=== PATIENT | male | born 1970 | race Caucasian/White ===

== ENCOUNTER 2016-08-29 22:50 | Observation (INO) | payer BC ==
[~2016-08-29] VITALS: Ht 182.9 cm; Wt 83.1 kg
--- NOTE | 2016-08-29 23:09 | PD ---
HPI Chief Complaint: altered mental status Time Seen by Provider: 23:02 Travel History International Travel<30 days: No Contact w/Intl Traveler<30days: No Traveled to known affect area: No History of Present Illness HPI 46-year-old male brought in by ambulance for evaluation of altered mental status. The patient has history of diabetes and takes 2 mg of Lantus daily. He admits to drinking alcohol daily, but states he drank only a half a bottle of wine today. According to EMS, family and friends were worried about the patient's altered mental status and more particular concerned that he might have low blood sugar. BGL obtained by EMS was 112. Patient arrives agitated, however I'm able to easily calmed down by talking to him. He tells me he thinks his blood sugar may be low and that he has not been acting like himself for the last 5 hours. He states he is from [place] and feels somewhat depressed because he has to go back to their and leave his girlfriend here. He is here currently on vacation. States that he was supposed to fly back to days ago, but has missed his flights the last 2 days. He denies illicit drug use. Complains of total body aches, but is denying any other physical complaints. No suicidal or homicidal ideation. When talking with the patient's girlfriend, she tells me that the patient has had several similar episodes of not acting like himself, becoming agitated over the last 4 days. PFSH Social History Alcohol Use: Yes Tobacco Use: No (former smoker) Allergies-Medications (Allergen,Severity, Reaction): Coded Allergies: Darvocet-N 100 (Verified Allergy, Severe, Hallucinations, 08/29/16) Reported Meds & Prescriptions Reported Meds & Active Scripts Active Reported Prevacid (Lansoprazole) 15 Mg Capdr 15 Mg PO DAILY Lantus Inj (Insulin Glargine) 1,000 Unit/10 Ml Vial 2 Units SQ DAILY Review of Systems Except as stated in HPI: all other systems reviewed are Neg Physical Exam Narrative GENERAL: Well-developed, well-nourished, awake, alert, no acute distress. SKIN: Warm and dry. HEAD: Atraumatic. Normocephalic. EYES: Pupils equal and round. No scleral icterus. No injection or drainage. ENT: Mucous membranes pink and moist. NECK: Trachea midline. No JVD. CARDIOVASCULAR: Regular rate and rhythm. RESPIRATORY: No accessory muscle use. Clear to auscultation. Breath sounds equal bilaterally. GASTROINTESTINAL: Abdomen soft, non-tender, nondistended. MUSCULOSKELETAL: No obvious deformities. No clubbing. No cyanosis. No edema. NEUROLOGICAL: Awake and alert. No obvious cranial nerve deficits. Motor grossly within normal limits. Normal speech. PSYCHIATRIC: Agitated, but easily consolable. Flat affect. Appears intoxicated. Data Data Last Documented VS Vital Signs Date Time Temp Pulse Resp B/P Pulse Ox O2 Delivery O2 Flow Rate FiO2 08/30/16 00:40 100 18 163/95 95 Room Air 08/29/16 23:10 97.9 Orders Complete Blood Count With Diff (08/29/16 23:02) Comprehensive Metabolic Panel (08/29/16 23:02) Electrocardiogram (08/29/16 23:02) Drug Screen, Random Urine (08/29/16 23:02) Alcohol (Ethanol) (08/29/16 23:02) Salicylates (Aspirin) (08/29/16 23:02) Tylenol (Acetaminophen) (08/29/16 23:02) Ammonia (08/29/16 23:02) Ct Brain W/O Iv Contrast(Rout) (08/29/16 ) Sodium Chlor 0.9% 1000 Ml Inj (Ns 1000 M (08/29/16 23:45) Ckmb (Isoenzyme) Profile (08/29/16 23:10) Troponin I (08/29/16 23:10) CKMB (08/29/16 23:10) CKMB% (08/29/16 23:10) Sodium Chlor 0.9% 1000 Ml Inj (Ns 1000 M (08/30/16 01:30) Place In Observation (08/30/16 ) Vital Signs (Adult) Q4H (08/30/16 01:42) Activity Oob With Assistance (08/30/16 01:42) Lathe Spotter / Telemetry .CONTINUOUS (08/30/16 01:42) Sodium Chlor 0.9% 1000 Ml Inj (Ns 1000 M (08/30/16 01:42) Sodium Chloride 0.9% Flush (Ns Flush) (08/30/16 01:45) Sodium Chloride 0.9% Flush (Ns Flush) (08/30/16 09:00) Case Management Consult (08/30/16 01:42) Enoxaparin Inj (Lovenox Inj) (08/30/16 09:00) Naloxone Inj (Narcan Inj) (08/30/16 01:45) Creatine Kinase (Cpk) (08/30/16 06:00) Magnesium (Mg) (08/29/16 23:10) Admit Order (Ed Use Only) (08/30/16 ) ^ Saline Lock (08/30/16 01:44) Resp Oxygen Sumit C Titrat 1-4 L (08/30/16 ) ^ Notify Dr: Other (08/30/16 01:44) Sodium Chloride 0.9% Flush (Ns Flush) (08/30/16 09:00) Sodium Chloride 0.9% Flush (Ns Flush) (08/30/16 01:45) Urinalysis - C+S If Indicated (08/30/16 01:46) CKMB (08/30/16 07:28) CKMB% (08/30/16 07:28) Labs Laboratory Tests Test 08/29/16 08/30/16 23:10 00:00 White Blood Count 4.9 TH/MM3 Red Blood Count 4.98 MIL/MM3 Hemoglobin 14.4 GM/DL Hematocrit 42.1 % Mean Corpuscular Volume 84.7 FL Mean Corpuscular Hemoglobin 29.0 PG Mean Corpuscular Hemoglobin 34.2 % Concent Red Cell Distribution Width 15.3 % Platelet Count 193 TH/MM3 Mean Platelet Volume 7.9 FL Neutrophils (%) (Auto) 41.6 % Lymphocytes (%) (Auto) 32.6 % Monocytes (%) (Auto) 19.1 % Eosinophils (%) (Auto) 5.4 % Basophils (%) (Auto) 1.3 % Neutrophils # (Auto) 2.0 TH/MM3 Lymphocytes # (Auto) 1.6 TH/MM3 Monocytes # (Auto) 0.9 TH/MM3 Eosinophils # (Auto) 0.3 TH/MM3 Basophils # (Auto) 0.1 TH/MM3 CBC Comment DIFF FINAL Differential Comment Sodium Level 139 MEQ/L Potassium Level 3.7 MEQ/L Chloride Level 99 MEQ/L Carbon Dioxide Level 27.3 MEQ/L Anion Gap 13 MEQ/L Blood Urea Nitrogen 8 MG/DL Creatinine 0.80 MG/DL Estimat Glomerular Filtration 105 ML/MIN Rate Random Glucose 103 MG/DL Calcium Level 8.5 MG/DL Magnesium Level 2.2 MG/DL Total Bilirubin 0.4 MG/DL Aspartate Amino Transf 138 U/L (AST/SGOT) Alanine Aminotransferase 164 U/L (ALT/SGPT) Alkaline Phosphatase 63 U/L Ammonia 11 MCMOL/L Total Creatine Kinase 1233 U/L Creatine Kinase MB 8.6 NG/ML Creatine Kinase MB % 0.7 % Troponin I 0.07 NG/ML Total Protein 7.4 GM/DL Albumin 3.8 GM/DL Salicylates Level LESS THAN 1.7 MG/DL Acetaminophen Level LESS THAN 2.0 MCG/ML Ethyl Alcohol Level 421 MG/DL Urine Color STRAW Urine Turbidity CLEAR Urine pH 6.0 Urine Specific [place] 1.001 Urine Protein NEG mg/dL Urine Glucose (UA) NEG mg/dL Urine Ketones NEG mg/dL Urine Occult Blood TRACE Urine Nitrite NEG Urine Bilirubin NEG Urine Leukocyte Esterase NEG Urine RBC 0-3 /hpf Urine Squamous Epithelial 0-5 /hpf Cells Microscopic Urinalysis Comment CULT NOT INDICATED Urine Opiates Screen NEG Urine Barbiturates Screen NEG Urine Amphetamines Screen NEG Urine Benzodiazepines Screen NEG Urine Cocaine Screen NEG Urine Cannabinoids Screen NEG MDM Medical Decision Making Medical Screen Exam Complete: Yes Emergency Medical Condition: Yes Interpretation(s) EKG: Sinus, rate 95, left axis deviation, normal intervals, Q waves in inferior leads, no acute ischemic abnormalities. Differential Diagnosis Alcohol intoxication, depression, intracranial abnormality, hyperammonemia, liver failure, metabolic abnormality Narrative Course Initial vital signs show heart rate 110, blood pressure 163/98, pulse ox 96% on room air, oral temp of 97.9F. CBC is unremarkable. CMP is remarkable for AST 138, ALT 164, otherwise unremarkable. At approximately midnight at the end of my shift the patient was signed out to Dr. Hirsch who will follow up with the rest of the patient's labs and will disposition the patient. The patient was made aware of all findings until this point. Reports history of elevated liver enzymes and is likely secondary to his alcohol use. He admits to drinking more alcohol than he usually does over the last several days while he has been here on vacation and this is likely contributing to the way he has been acting. Again he denies suicidal or homicidal ideation. He does admit to feeling somewhat anxious and depressed about going back to [place] and leaving his girlfriend behind. I offered to have a psychiatrist be to the patient, however he has declined. If the rest of his lab work is unremarkable, the girlfriend feels comfortable taking the patient home. Patient reports that he has a flight back to [place] tomorrow. David Esquivel MD Aug 29, 2016 23:09
[2016-08-29 23:10] VITALS: BP 163/98; PULSE 110; RESP 18; TEMP 97.9; O2SAT 96
[2016-08-29 23:37] LABS: CHLORIDE 99 MEQ/L (98-107); POTASSIUM 3.7 MEQ/L (3.5-5.1); SODIUM (NA) 139 MEQ/L (136-145)
[2016-08-29 23:40] LABS: ANION GAP 13 MEQ/L (5-15); BICARBONATE 27.3 MEQ/L (21.0-32.0)
[2016-08-29 23:41] LABS: BLOOD UREA NITROGEN 8 MG/DL (7-18)
[2016-08-29 23:42] LABS: BASOPHIL # 0.1 TH/MM3 (0-0.2); BASOPHIL % 1.3 % (0.0-2.0); EOSINOPHIL # 0.3 TH/MM3 (0-0.4); EOSINOPHIL % 5.4 % (0.0-4.0); HEMATOCRIT 42.1 % (39.0-51.0); HEMO FLAGS DIFF FINAL; LYMPH % 32.6 % (9.0-44.0); LYMPHOCYTE # 1.6 TH/MM3 (1.0-4.8); MEAN CELL VOLUME 84.7 FL (80.0-100.0); MEAN CORPUSCULAR HGB CONC 34.2 % (32.0-36.0); MONO % 19.1 % (0.0-8.0); NEUT % 41.6 % (16.0-70.0); PLATELET COUNT 193 TH/MM3 (150-450); RED BLOOD COUNT 4.98 MIL/MM3 (4.50-5.90); RED CELL DISTRIBUTION WIDTH 15.3 % (11.6-17.2); WHITE BLOOD COUNT 4.9 TH/MM3 (4.0-11.0)
[2016-08-29 23:43] LABS: ALT (GPT) 164 U/L (12-78); AST (GOT) 138 U/L (15-37); GLOMERULAR FILTRATION RATE 105 ML/MIN (>89)
[2016-08-29 23:45] LABS: TOTAL BILIRUBIN ADULT 0.4 MG/DL (0.2-1.0)
[2016-08-29] MEDS ORDERED: SODIUM CHLOR 0.9% 1000 ML INJ 1,000 ML IV ONE (23:45)
[2016-08-29 23:46] LABS: ALKALINE PHOSPHATASE 63 U/L (45-117)
--- NOTE | 2016-08-29 23:59 | RADHPO ---
EXAM DATE/TIME: 08/29/2016 23:20 [facility] COMPARISON: No previous studies available for comparison. INDICATIONS : Altered mental status. RADIATION DOSE: 62.13 CTDIvol (mGy) MEDICAL HISTORY : None SURGICAL HISTORY : None. ENCOUNTER: Initial ACUITY: 2 days PAIN SCALE: 0/10 LOCATION: cranial TECHNIQUE: Multiple contiguous axial images were obtained of the head. Using automated exposure control and adj ustment of the mA and/or kV according to patient size, radiation dose was kept as low as reasonably a chievable to obtain optimal diagnostic quality images. FINDINGS: CEREBRUM: The ventricles are normal for age. No evidence of midline shift, mass lesion, hemorrhage or acute in farction. No extra-axial fluid collections are seen. POSTERIOR FOSSA: The cerebellum and brainstem are intact. The 4th ventricle is midline. The cerebellopontine angle i s unremarkable. EXTRACRANIAL: The visualized portion of the orbits is intact. SKULL: The calvaria is intact. No evidence of skull fracture. CONCLUSION: No acute disease. Jovan Garber MD on August 29, 2016 at 23:55 Board Certified Radiologist. This report was verified electronically.
[2016-08-30] VITALS (9 sets, daily range): BP systolic 124–163; BP diastolic 63–95; PULSE 74–100; RESP 18; TEMP 96.7–98.4; O2SAT 86–98
[2016-08-30 00:22] LABS: AMPHETAMINE, URINE NEG (NEG)
[2016-08-30 00:23] LABS: BARBITURATES, URINE NEG (NEG)
[2016-08-30 00:25] LABS: COCAINE, URINE NEG (NEG)
--- NOTE | 2016-08-30 00:27 | PD ---
Physical Exam Date Seen by Provider: Aug 30, 2016 Time Seen by Provider: 00:25 Narrative Accepted in transfer of care from Dr. Esquivel GENERAL: Well-developed well-nourished male in no acute distress no respiratory distress GCS 15 SKIN: Warm and dry. HEAD: Atraumatic. Normocephalic. EYES: Pupils equal and round. No scleral icterus. No injection or drainage. ENT: No nasal bleeding or discharge. Mucous membranes pink and moist. NECK: Trachea midline. No JVD. CARDIOVASCULAR: Regular rate and rhythm. RESPIRATORY: No accessory muscle use. Clear to auscultation. Breath sounds equal bilaterally. GASTROINTESTINAL: Abdomen soft, non-tender, nondistended. Hepatic and splenic margins not palpable. MUSCULOSKELETAL: Extremities without clubbing, cyanosis, or edema. No obvious deformities. NEUROLOGICAL: Awake and alert. No obvious cranial nerve deficits. Motor grossly within normal limits. Five out of 5 muscle strength in the arms and legs. Normal speech. PSYCHIATRIC: Cooperative mood and affect although intermittently mildly agitated. Data Data Last Documented VS Vital Signs Date Time Temp Pulse Resp B/P Pulse Ox O2 Delivery O2 Flow Rate FiO2 08/30/16 00:40 100 18 163/95 95 Room Air 08/29/16 23:10 97.9 Orders Complete Blood Count With Diff (08/29/16 23:02) Comprehensive Metabolic Panel (08/29/16 23:02) Electrocardiogram (08/29/16 23:02) Drug Screen, Random Urine (08/29/16 23:02) Alcohol (Ethanol) (08/29/16 23:02) Salicylates (Aspirin) (08/29/16 23:02) Tylenol (Acetaminophen) (08/29/16 23:02) Ammonia (08/29/16 23:02) Ct Brain W/O Iv Contrast(Rout) (08/29/16 ) Sodium Chlor 0.9% 1000 Ml Inj (Ns 1000 M (08/29/16 23:45) Ckmb (Isoenzyme) Profile (08/29/16 23:10) Troponin I (08/29/16 23:10) CKMB (08/29/16 23:10) CKMB% (08/29/16 23:10) Sodium Chlor 0.9% 1000 Ml Inj (Ns 1000 M (08/30/16 01:30) Place In Observation (08/30/16 ) Vital Signs (Adult) Q4H (08/30/16 01:42) Activity Oob With Assistance (08/30/16 01:42) Insecticide Expert / Telemetry .CONTINUOUS (08/30/16 01:42) Diet Heart Healthy (08/30/16 Breakfast) Sodium Chlor 0.9% 1000 Ml Inj (Ns 1000 M (08/30/16 01:42) Sodium Chloride 0.9% Flush (Ns Flush) (08/30/16 01:45) Sodium Chloride 0.9% Flush (Ns Flush) (08/30/16 09:00) Comprehensive Metabolic Panel (08/31/16 06:00) Complete Blood Count With Diff (08/31/16 06:00) Case Management Consult (08/30/16 01:42) Enoxaparin Inj (Lovenox Inj) (08/30/16 09:00) Naloxone Inj (Narcan Inj) (08/30/16 01:45) Creatine Kinase (Cpk) (08/30/16 06:00) Magnesium (Mg) (08/29/16 23:10) Admit Order (Ed Use Only) (08/30/16 ) ^ Saline Lock (08/30/16 01:44) Resp Oxygen Sumit C Titrat 1-4 L (08/30/16 ) ^ Notify Dr: Other (08/30/16 01:44) Sodium Chloride 0.9% Flush (Ns Flush) (08/30/16 09:00) Sodium Chloride 0.9% Flush (Ns Flush) (08/30/16 01:45) Urinalysis - C+S If Indicated (08/30/16 01:46) Labs Laboratory Tests Test 08/29/16 08/30/16 23:10 00:00 White Blood Count 4.9 TH/MM3 Red Blood Count 4.98 MIL/MM3 Hemoglobin 14.4 GM/DL Hematocrit 42.1 % Mean Corpuscular Volume 84.7 FL Mean Corpuscular Hemoglobin 29.0 PG Mean Corpuscular Hemoglobin 34.2 % Concent Red Cell Distribution Width 15.3 % Platelet Count 193 TH/MM3 Mean Platelet Volume 7.9 FL Neutrophils (%) (Auto) 41.6 % Lymphocytes (%) (Auto) 32.6 % Monocytes (%) (Auto) 19.1 % Eosinophils (%) (Auto) 5.4 % Basophils (%) (Auto) 1.3 % Neutrophils # (Auto) 2.0 TH/MM3 Lymphocytes # (Auto) 1.6 TH/MM3 Monocytes # (Auto) 0.9 TH/MM3 Eosinophils # (Auto) 0.3 TH/MM3 Basophils # (Auto) 0.1 TH/MM3 CBC Comment DIFF FINAL Differential Comment Sodium Level 139 MEQ/L Potassium Level 3.7 MEQ/L Chloride Level 99 MEQ/L Carbon Dioxide Level 27.3 MEQ/L Anion Gap 13 MEQ/L Blood Urea Nitrogen 8 MG/DL Creatinine 0.80 MG/DL Estimat Glomerular Filtration 105 ML/MIN Rate Random Glucose 103 MG/DL Calcium Level 8.5 MG/DL Magnesium Level 2.2 MG/DL Total Bilirubin 0.4 MG/DL Aspartate Amino Transf 138 U/L (AST/SGOT) Alanine Aminotransferase 164 U/L (ALT/SGPT) Alkaline Phosphatase 63 U/L Ammonia 11 MCMOL/L Total Creatine Kinase 1233 U/L Creatine Kinase MB 8.6 NG/ML Creatine Kinase MB % 0.7 % Troponin I 0.07 NG/ML Total Protein 7.4 GM/DL Albumin 3.8 GM/DL Salicylates Level LESS THAN 1.7 MG/DL Acetaminophen Level LESS THAN 2.0 MCG/ML Ethyl Alcohol Level 421 MG/DL Urine Color STRAW Urine Turbidity CLEAR Urine pH 6.0 Urine Specific [place] 1.001 Urine Protein NEG mg/dL Urine Glucose (UA) NEG mg/dL Urine Ketones NEG mg/dL Urine Occult Blood TRACE Urine Nitrite NEG Urine Bilirubin NEG Urine Leukocyte Esterase NEG Urine RBC 0-3 /hpf Urine Squamous Epithelial 0-5 /hpf Cells Microscopic Urinalysis Comment CULT NOT INDICATED Urine Opiates Screen NEG Urine Barbiturates Screen NEG Urine Amphetamines Screen NEG Urine Benzodiazepines Screen NEG Urine Cocaine Screen NEG Urine Cannabinoids Screen NEG MDM Medical Record Reviewed: Yes Supervised Visit with LEONEL: No Interpretation(s) CBC & BMP Diagram 08/29/16 23:[address] 08/29/16 0000 Signed Impressions: Service Date/Time: Monday, August 29, 2016 23:20 - CONCLUSION: No acute disease. Jovan Garber MD troponin I: 0.07 ck: 1233, elevated; MB%: 0.7% not elevated ua: trace blood; no rbc's Differential Diagnosis Accepted in transfer of care from Dr. Esquivel; please refer to his dictation Narrative Course Accepted in transfer of care from Dr. Esquivel Patient identified to have elevated total CK and troponin I with being diabetic male age 46 and EKG that shows age-indeterminate QS pattern inferiorly limit for observation for repeat troponin and in view of markedly elevated CK repeat CK for rhabdomyolysis patient receiving normal saline bolus at this time and has had a previous normal saline bolus. Patient also intoxicated with serum alcohol 421 Patient's case discussed with on-call medicine for observation Physician Communication Physician Communication discussed with DR Junior for obs--elevated troponin I; elevated ck for rhabdomyolysis; alcohol intoxication; diabetes; anxiety Diagnosis Primary Impression: Altered mental status, unspecified Additional Impressions: Alcohol intoxication Qualified Code: F10.120 - Alcohol intoxication, uncomplicated Elevated troponin Rhabdomyolysis Qualified Code: M62.82 - Non-traumatic rhabdomyolysis Admitting Information Admitting Physician Requests: Observation Velia Hirsch MD Aug 30, 2016 00:27
[2016-08-30 00:28] LABS: CREATINE KINASE 1233 U/L (39-308)
[2016-08-30 00:42] LABS: CKMB 8.6 NG/ML (0.5-3.6)
[2016-08-30 00:55] LABS: ACETAMINOPHEN LESS THAN 2.0 MCG/ML (10.0-30.0)
[2016-08-30] MEDS ORDERED: SODIUM CHLOR 0.9% 1000 ML INJ 1,000 ML IV ONE (01:30)
[2016-08-30] MEDS ORDERED: SODIUM CHLORIDE 0.9% FLUSH 5 ML FLUSH FLUSH PRN (01:45)
[2016-08-30] MEDS ORDERED: SODIUM CHLORIDE 0.9% FLUSH 5 ML FLUSH IVF PRN (01:45)
[2016-08-30] MEDS ORDERED: NALOXONE HCL 0.4 MG/ML AMP IV PRN (01:45)
[2016-08-30 01:50] LABS: MAGNESIUM 2.2 MG/DL (1.5-2.5)
[2016-08-30 02:07] LABS: BLOOD, URINE TRACE (NEG); GLUCOSE,URINE NEG (NEG); KETONE, URINE NEG (NEG); NITRITE,URINE NEG (NEG)
[2016-08-30 02:24] LABS: URINE COLOR STRAW (YELLW/STRAW)
[2016-08-30 02:25] LABS: COMMENT (UR) CULT NOT INDICATED; CULTURE IF INDICATED CULT NOT INDICATED; RBC, URINE 0-3 /hpf (0-3); SQUAMOUS EPITHELIAL CELL URINE 0-5 /hpf (0-5)
[2016-08-30] MEDS: SODIUM CHLOR 0.9% 1000 ML INJ 1,000 ML IV SCH ×2 (02:50→12:08)
[2016-08-30] MEDS ORDERED: LANTUS2P SQ (02:55)
[2016-08-30] MEDS ORDERED: PREV15CA15 PO (02:56)
[2016-08-30 03:24] LABS: CKMB 7.6 NG/ML (0.5-3.6)
[2016-08-30] MEDS ORDERED: SODIUM CHLORIDE 0.9% FLUSH 5 ML FLUSH FLUSH SCH (09:00)
[2016-08-30] MEDS ORDERED: SODIUM CHLORIDE 0.9% FLUSH 5 ML FLUSH IVF SCH (09:00)
[2016-08-30] MEDS ORDERED: ENOXAPARIN SODIUM 40 MG/0.4 ML SYRINGE SQ SCH (09:00)
[2016-08-30] MEDS ORDERED: GLUCAGON 1 MG/ML VIAL OTHER PRN (09:30)
[2016-08-30] MEDS ORDERED: DEXTROSE 50% IN WATER 50 ML VIAL(D50) IV PUSH PRN (09:30)
[2016-08-30] MEDS ORDERED: ONDANSETRON HCL 4 MG/2 ML VIAL IV PUSH PRN (09:45)
[2016-08-30] MEDS ORDERED: INSULIN ASPART SUPPLEMENTAL SCALE SQ SCH (11:00)
--- NOTE | 2016-08-30 15:00 | HHI.HP ---
HPI [facility] Primary Care Physician No Primary Care Physician Admission Diagnosis ams; alcohol intoxication; rhadomyolysis Diagnoses: Travel History International Travel<30 Days: No Contact w/Intl Traveler <30 Da: No Traveled to Known Affected Are: No History of Present Illness This is a 46-year-old male with past medical history of insulin- dependent diabetes who presented to the ER last night for being lethargic with altered mental status. The patient was acutely intoxicated. This afternoon he is alert and oriented. He complains of burning paresthesias in his lower extremities which is been ongoing for some time. The patient apparently has been drinking rather heavily over the past several days and has missed his flight back to [place] twice already. He is here in the area visiting with his girlfriend who is at bedside. The patient also complains of some vague abdominal upset but no nausea or vomiting. No chest pain. Denies slurred speech, or weakness. Review of Systems Except as stated in HPI: all other systems reviewed are Neg Past Family Social History Past Medical History Diabetes GERD Past Surgical History Arthroscopy Reported Medications Reviewed Allergies: Coded Allergies: Darvocet-N 100 (Verified Allergy, Severe, Hallucinations, 08/29/16) Family History Reviewed and noncontributory Social History As per history of present illness. No tobacco use. Physical Exam Vital Signs Vital Signs Date Time Temp Pulse Resp B/P Pulse Ox O2 Delivery O2 Flow Rate FiO2 08/30/16 12:00 98.4 84 18 156/94 95 08/30/16 08:10 96 Nasal Cannula 2 08/30/16 08:09 79 18 151/81 86 Nasal Cannula 2 08/30/16 08:00 96.7 90 18 128/88 95 08/30/16 04:00 82 18 142/93 95 Room Air 08/30/16 04:00 95 Room Air 08/30/16 02:06 87 18 147/84 95 Room Air 08/30/16 01:48 95 21 08/30/16 00:40 100 18 163/95 95 Room Air 08/29/16 23:56 Room Air 08/29/16 23:10 97.9 110 18 163/98 96 Physical Exam GENERAL: Well-nourished, well-developed middle-aged male patient. SKIN: Warm and dry. HEAD: Normocephalic. EYES: No scleral icterus. No injection or drainage. NECK: Supple, trachea midline. No JVD or lymphadenopathy. CARDIOVASCULAR: Regular rate and rhythm without murmurs, gallops, or rubs. RESPIRATORY: Breath sounds equal bilaterally. No accessory muscle use. GASTROINTESTINAL: Abdomen soft, non-tender, nondistended. EXTREMITIES: No cyanosis, or edema. NEUROLOGICAL: Awake, alert, and oriented x 3. Non-focal. Patient's gait is within normal limits. Laboratory Laboratory Tests Test 08/29/16 08/30/16 08/30/16 08/30/16 23:10 00:00 02:25 07:28 White Blood Count 4.9 Red Blood Count 4.98 Hemoglobin 14.4 Hematocrit 42.1 Mean Corpuscular Volume 84.7 Mean Corpuscular Hemoglobin 29.0 Mean Corpuscular Hemoglobin 34.2 Concent Red Cell Distribution Width 15.3 Platelet Count 193 Mean Platelet Volume 7.9 Neutrophils (%) (Auto) 41.6 Lymphocytes (%) (Auto) 32.6 Monocytes (%) (Auto) 19.1 Eosinophils (%) (Auto) 5.4 Basophils (%) (Auto) 1.3 Neutrophils # (Auto) 2.0 Lymphocytes # (Auto) 1.6 Monocytes # (Auto) 0.9 Eosinophils # (Auto) 0.3 Basophils # (Auto) 0.1 CBC Comment DIFF FINAL Differential Comment Sodium Level 139 Potassium Level 3.7 Chloride Level 99 Carbon Dioxide Level 27.3 Anion Gap 13 Blood Urea Nitrogen 8 Creatinine 0.80 Estimat Glomerular Filtration 105 Rate Random Glucose 103 Calcium Level 8.5 Magnesium Level 2.2 Total Bilirubin 0.4 Aspartate Amino Transf 138 (AST/SGOT) Alanine Aminotransferase 164 (ALT/SGPT) Alkaline Phosphatase 63 Ammonia 11 Total Creatine Kinase 1233 1020 935 Creatine Kinase MB 8.6 7.6 8.0 Creatine Kinase MB % 0.7 0.7 0.9 Troponin I 0.07 0.08 Total Protein 7.4 Albumin 3.8 Salicylates Level LESS THAN 1.7 Acetaminophen Level LESS THAN 2.0 Ethyl Alcohol Level 421 Urine Color STRAW Urine Turbidity CLEAR Urine pH 6.0 Urine Specific [place] 1.001 Urine Protein NEG Urine Glucose (UA) NEG Urine Ketones NEG Urine Occult Blood TRACE Urine Nitrite NEG Urine Bilirubin NEG Urine Leukocyte Esterase NEG Urine RBC 0-3 Urine Squamous Epithelial 0-5 Cells Microscopic Urinalysis Comment CULT NOT INDICATED Urine Opiates Screen NEG Urine Barbiturates Screen NEG Urine Amphetamines Screen NEG Urine Benzodiazepines Screen NEG Urine Cocaine Screen NEG Urine Cannabinoids Screen NEG Result Diagram: 08/29/16 2310 08/29/16 2310 Imaging Last Impressions Head CT 08/29/16 0000 Signed Impressions: Service Date/Time: Monday, August 29, 2016 23:20 - CONCLUSION: No acute disease. Jovan Garber MD Assessment and Plan Assessment and Plan -Altered mental status due to Alcohol intoxication, resolved. -Mild rhabdomyolysis. Likely due to alcohol intoxication. Improving. Patient encouraged to push by mouth fluids and avoid further alcohol. -Type 2 diabetes likely peripheral neuropathy. Patient advised to continue his home insulin regimen. Follow-up with primary care physician in [place]. Eugenie Davison MD Aug 30, 2016 15:00
--- NOTE | 2016-08-30 16:34 | EKG ---
Date Performed: 08/29/2016 Time Performed: 23:11:10 PTAGE: 46 years EKG: Sinus rhythm . Left axis deviation Inferior infarct - age undetermined Abnormal ECG NO PREVIOUS TRACING DOCTOR: Rafat Worthington Interpretating Date/Time 08/30/2016 16:32:34
== END 2016-08-30 15:34 | disposition home or self-care (01) ==
LOC: PHED 22:50 → PHEDA 08-30 01:46 → PHEDH 08-30 05:46 → PH3A 08-30 07:56
PROVIDERS: ADMIT Family Medicine; ATTEND Family Medicine
DX: R41.82 Altered mental status, unspecified (principal); F10.120 Alcohol abuse with intoxication, uncomplicated; M62.82 Rhabdomyolysis; R79.89 Other specified abnormal findings of blood chemistry; E11.9 Type 2 diabetes mellitus without complications; Z79.4 Long term (current) use of insulin
CPT/HCPCS: 70450; 80053; 80307; 80320; 81001; 82140; 82550; 82552; 82948; 83735; 84484; 85025; 93005; 96360; 96361; 99285; G0378; J1650; J2405; J7030; 80329; G0480